=== PATIENT | male | born 1985 | race Caucasian/White ===

== ENCOUNTER 2021-12-08 19:04 | Emergency (ER) | payer OTHER ==
[2021-12-08] MEDS ORDERED: AMOX TR-K CLV1 EAC4 PO (19:58)
== END 2021-12-08 19:40 | disposition home or self-care (01) ==
LOC: ER1 19:04
DX: K04.7 Periapical abscess without sinus (principal); K02.9 Dental caries, unspecified; F17.210 Nicotine dependence, cigarettes, uncomplicated
CPT/HCPCS: 99282